=== PATIENT | female | born 1940 | race Caucasian/White ===

== ENCOUNTER → 2020-05-15 10:08 | Outpatient (REF) | payer MEDICARE, SELFPAY | LOC: ANHLAB 10:08 | PROVIDERS: PCP Internal Medicine; Visit Provider Nurse Practitioner | DX: C44.319 Basal cell carcinoma of skin of other parts of face (principal) | CPT/HCPCS: 88305 ==

== ENCOUNTER → 2020-06-11 07:52 | Outpatient (REF) | payer MEDICARE, SELFPAY | LOC: ANHLAB 07:52 | PROVIDERS: PCP Internal Medicine; Visit Provider Nurse Practitioner | DX: C44.329 Squamous cell carcinoma of skin of other parts of face (principal) | CPT/HCPCS: 88305; 88331 ==

== ENCOUNTER 2023-02-04 13:00 | Outpatient (RCR) | payer MEDICARE, SELFPAY ==
--- NOTE | 2023-01-30 15:49 | PTOPEVAL1 ---
Assessment and note entered by Koki Rushing, PT Evaluation Information Assessment Status Evaluation Diagnosis spondylosis Onset multiple years Subjective Information Reports 2014 had her left leg had a stu put in and thinks this is what threw her back off. Prior to this had minimal back pain. Knees done in 2004 Pt notes increased dose of Tramadol per MD instruction. Today was second day to have increased dose. Took medication about an hour ago to improve in therapy. Pt has been to pain management and got a couple shots in her back. Was supposed to get one more shot but was in jail. Was in the jail for rehab after stomach ulcer bleed. Reports day of shot would improve but it wouldn't last. Reported Pain Level Pain Score 8: Self Report Additional Pain Score Comments Will alternate ice and heat then can get about 20 minutes of activity done Assessment PT Clinical Summary Pt presents with diagnosis of spondylosis. Evaluation shows significant spinal curvatures in standing with significant leg length discrepancy left longer than right. She also shows severe lumbar and thoracic flexion while walking with her rollator. Pt reports high levels of pain, reports is unable to sleep on her sides and has spasms in her back. She also demo's decreased strength of hip musculature against gravity and is limited in testing today due to pain. Pt will benefit from therapy to improve pain, range, strength, ambulation, and mobility to return to higher functional independence. Plan of Care Interventions Gait Training,Hot Pack/Cold Pack,Manual Therapy, Neuro Re-education,Therapeutic Activities, Therapeutic Exercise,Ultrasound PT Services Indicated Yes Treatment Frequency and 2x weekly x 8 weeks Duration These treatments will address the objective and functional deficits as defined above. The patient will be advanced safely and appropriately in order for the patient to progress towards his/her prior level of function. Additional exercises will be introduced and as well as a comprehensive home exercise program upon discharge, if needed, ?to ensure carryover of functional gains achieved in the clinic. This treatment plan has been reviewed and agreement upon by the patient.
--- NOTE | 2023-02-12 09:49 | PCPTNOTE ---
Patient called to cancel today's visit. May be starting home health
--- NOTE | 2023-02-17 11:37 | PTOPDC ---
Assessment and note entered by Koki Rushing, PT Assessment Status Discharge - Pt Not Present Diagnosis spondylosis Onset multiple years Assessment PT Clinical Summary Pt reports she is planning on seeking home health physical therapy. Is currently receiving [facility]. Thus pt is being discharged due to being unable to seek home health and outpatient services at the same time.
== END 2023-02-18 11:17 | disposition home or self-care (01) ==
LOC: ANHHIPT 13:00
PROVIDERS: PCP Physician Assistant Medical; Visit Provider Family Medicine
DX: M47.9 Spondylosis, unspecified (principal)
CPT/HCPCS: 97110; 97112; 97140; 97163

== ENCOUNTER 2025-06-21 10:30 | Outpatient (RCR) | payer MEDICARE, SELFPAY ==
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
--- NOTE | 2025-03-24 12:07 | OPREHPOC ---
Outpatient Therapy Plan of Care This is a Multidisciplinary Plan of Care that may contain components documented by all disciplines (PT, OT, and ST.) PT Problem 1 PT Problem #1 Knowledge Deficit PT Goal 1 Goal / Goal Update 1. Pt will demo good understanding of postural dysfunction and impact on balance and ambulation. 2. Pt will perform HEPs to improve back stability and balance. Target Visit 10 PT Problem 2 PT Problem #2 Pain PT Goal 1 Goal / Goal Update Pt will report 2-3/10 pain at worst with standing and ambulation. Target Visit 12 PT Problem 3 PT Problem #3 Impaired Balance PT Goal 1 Goal / Goal Update Pt will demo improved Tinetti Assessment score to moderate risk for falls from High Risk for falls. Target Visit 12 PT Problem 4 PT Problem #4 Impaired Gait PT Goal 1 Goal / Goal Update Pt will improve 2min walk test to 200ft or more with improved endurance and reduced pain/fatigue Target Visit 12
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
--- NOTE | 2025-04-20 10:27 | PCPTNOTE ---
When patient did not arrive for her appt, after 10 minutes was called to inquire if she was on her way. Pt states she forgot appt.
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
--- NOTE | 2025-05-23 15:12 | PTOPPROG ---
Assessment and note entered by Koki Rushing, PT Evaluation Information Assessment Status Progress Diagnosis M54.50 ICD-10 Condition Codes (PT) Pain in Thoracic Spine M54.6,Pain in low back M54. 50,Radiculopathy, thoracolumbar region M54.15, Repeated falls R29.6,Difficulty Walking R26.2, Abnormalities of gait and mobility R26.9,Weakness R53.1 Onset Chronic Subjective Information Pt reports is getting stronger, there are things she can do that she wasn't able to do prior. Is getting her back brace tomorrow from [employer] Reports hot stabbing pain 30% less often Still taking pain medication 2x daily. Tries to stretch it out but has had difficulty with this Pt reports is getting up and down, is able to stand longer in shower and turn around in shower better. Is able to stand while cooking versus turning her burner off, sitting down, then returning to it later. Pt reports is doing well with her home exercises, and is using her green strap exercises Assessment PT Clinical Summary Pt has attended therapy consistently for lumbar and thoracic pain, weakness, falls and difficulty in mobility and ambulation. Since start of therapy she shows improvement in her ambulation from 160 ft in 2 min walk test to 200 ft, reports less stabbing pains, improved LE strength, and reports improved function with standing and ADs such as showering, and cooking at home. She has been referred for a TLSO scoliosis brace that she will be receiving (ideally) tomorrow. Pt has been responding well to postural readjustment with tactile assist and visual feedback. She also reports feeling like she gets less out of breathe with activity. Pt will benefit from continued therapy to focus on LE and lumbopelvic core strengthening, assisting in brace acclimation and progression, and postural progressing with brace support to continue to reduce pain and improve overall function. Plan of Care Interventions Gait Training,Hot Pack/Cold Pack,Manual Therapy, Neuro Re-education,Patient/Caregiver Education, Therapeutic Activities,Therapeutic Exercise, Ultrasound,Other Other Interventions Bracing PT Services Indicated Yes Treatment Frequency and 1-2x weekly x 5 visits (remainder of initial 20 Duration visit POC) These treatments will address the objective and functional deficits as defined above. The patient will be advanced safely and appropriately in order for the patient to progress towards his/her prior level of function. Additional exercises will be introduced and as well as a comprehensive home exercise program upon discharge, if needed, ?to ensure carryover of functional gains achieved in the clinic. This treatment plan has been reviewed and agreement upon by the patient.
--- NOTE | 2025-05-23 15:12 | OPREHPOC ---
Outpatient Therapy Plan of Care This is a Multidisciplinary Plan of Care that may contain components documented by all disciplines (PT, OT, and ST.) PT Problem 1 PT Problem #1 Knowledge Deficit PT Goal 1 Goal / Goal Update 1. Pt will demo good understanding of postural dysfunction and impact on balance and ambulation. 2. Pt will perform HEPs to improve back stability and balance. Target Visit 10 Progress Met PT Problem 2 PT Problem #2 Pain PT Goal 1 Goal / Goal Update Pt will report 5-6/10 pain at worst with standing and ambulation. - updated 04/25/25 Target Visit 20 PT Problem 3 PT Problem #3 Impaired Balance PT Goal 1 Goal / Goal Update Pt will demo improved Tinetti Assessment score to moderate risk for falls from High Risk for falls. - updated goal visit 04/25/25 Target Visit 20 Progress Not Met PT Problem 4 PT Problem #4 Impaired Gait PT Goal 1 Goal / Goal Update Pt will improve 2min walk test to 200ft or more with improved endurance and reduced pain/fatigue Target Visit 12 Progress Met PT Problem 5 PT Problem #5 Impaired Functional ADLs PT Goal 1 Goal / Goal Update Pt will demonstrate ability to don and doff TLSO/ scoliosis support brace independently. Pt will report ability to tolerate wearing brace as long as required for support. Target Visit 20
--- NOTE | 2025-06-15 09:15 | PCPTNOTE ---
Patient was called by clerical when she did not come to her appt. Reports she received her brace and was told by another doctor not to go to therapy. Unknown who advised patient against therapy.
== END 2025-06-22 23:59 | disposition home or self-care (01) ==
LOC: ANHHIPT 10:30
PROVIDERS: PCP Physician Assistant Medical; Visit Provider Nurse Practitioner Family
DX: M54.50 Low back pain, unspecified (principal)
CPT/HCPCS: 97110; 97112; 97140; 97161; 97530; 97750

== ENCOUNTER 2025-06-30 09:30 | Outpatient (RCR) | payer MEDICARE, SELFPAY ==
--- NOTE | 2025-07-03 09:54 | PTOPDC ---
Assessment and note entered by Koki Rushing, PT Evaluation Information Assessment Status Discharge - Pt Not Present Diagnosis M54.50 ICD-10 Condition Codes (PT) Pain in Thoracic Spine M54.6,Pain in low back M54. 50,Radiculopathy, thoracolumbar region M54.15, Repeated falls R29.6,Difficulty Walking R26.2, Abnormalities of gait and mobility R26.9,Weakness R53.1 Onset Chronic Assessment PT Clinical Summary Pt has attended therapy consistently for her back pain related to scoliosis. She would have relief during therapy however the relief would not sustain between visits. She demonstrated ability to sit in a more neutral spine, and could correct with cueing in standing however did not have the endurance to maintain this independently. She then acquired a scoliosis support brace in order to assist in supporting her spine in standing for improved endurance to activities and decreased pain. She has been able to demonstrate independent and correct donning/doffing of brace, and has been educated and reinforced increasing wear time slowly to acclimate to brace. Pt also reported trying to wean herself from her Morphine at one point and she was educated on the dangers of weaning independently and advised to discuss options with her PCP. Pt appears to have met max benefit from PT, thus is being discharged at this time. Plan of Care PT Services Indicated No
== END 2025-07-03 10:08 | disposition home or self-care (01) ==
LOC: ANHHIPT 09:30
PROVIDERS: PCP Physician Assistant Medical; Visit Provider Nurse Practitioner Family
DX: M54.50 Low back pain, unspecified (principal)
CPT/HCPCS: 97530